=== PATIENT | male | born 1960 | race Caucasian/White ===

== ENCOUNTER 2016-08-18 20:08 | Emergency (ER) | payer MEDICARE, MEDICAID ==
[2016-08-18 22:04] LABS: ABSOLUTE EOSINOPHILS # (AUTO) 0.1 10^3/uL (0.0-0.6); ABSOLUTE LYMPHOCYTES (AUTO) 0.9 10^3/uL (0.5-4.7); ABSOLUTE MONOCYTES (AUTO) 0.6 10^3/uL (0.1-1.4); ABSOLUTE NEUT (AUTO) 10.7 10^3/uL (1.7-8.2); BASOPHILS % (AUTO) 0.3 % (0-2); EOSINOPHILS % (AUTO) 0.5 % (0-6); HEMATOCRIT 39.7 % (37.9-51.0); HEMOGLOBIN 13.4 g/dL (13.5-17.0); HGB HCT DIFFERENCE 0.5; LYMPHOCYTES % (AUTO) 7.5 % (13-45); MEAN CORPUSCULAR HEMOGLOBIN 29.9 pg (27.0-33.4); MEAN CORPUSCULAR HGB CONC 33.8 g/dL (32.0-36.0); MEAN CORPUSCULAR VOLUME 89 fl (80-97); RED BLOOD COUNT 4.49 10^6/uL (4.35-5.55); RED CELL DISTRIBUTION WIDTH 13.3 % (11.5-14.0); SEGMENTED NEUTROPHILS % (AUTO) 86.7 % (42-78); WHITE BLOOD COUNT 12.3 10^3/uL (4.0-10.5)
[2016-08-18 22:14] LABS: ALANINE AMINOTRANSFERASE 24 U/L (21-72); ALBUMIN 4.6 g/dL (3.5-5.0); ALKALINE PHOSPHATASE 65 U/L (38-126); ANION GAP 11 (5-19); ASPARTATE AMINO TRANSFERASE 16 U/L (17-59); BILIRUBIN,TOTAL 0.6 mg/dL (0.2-1.3); BLOOD UREA NITROGEN 23 mg/dL (7-20); CALCIUM 9.7 mg/dL (8.4-10.2); CARBON DIOXIDE 30 mmol/L (22-30); CHLORIDE 101 mmol/L (98-107); CREATININE RESULT 0.86 mg/dL (0.52-1.25); GLUCOSE 138 mg/dL (75-110); POTASSIUM 4.1 mmol/L (3.6-5.0); SODIUM 142.2 mmol/L (137-145); TOTAL PROTEIN 7.3 g/dL (6.3-8.2)
--- NOTE | 2016-08-18 22:21 | ER Document Report ---
ED General - General Chief Complaint: Low Blood Sugar Stated Complaint: POSSIBLE BLOOD SUGAR PROBLEMS Notes: Patient is a 55 year old male presents with complaint of low blood sugar. Patient does have history of his blood sugar dropping in the past. He's had no recent changes in his Lantus or NovoLog. He says the reason why sugar dropped this time is because he took his insulin and did not eat afterwards before going to sleep. He denies any fevers. No recent infections. He says he feels well now. No further complaints at this time. He has eaten. Butter and crackers since arriving to ER. TRAVEL OUTSIDE OF THE [place] IN LAST 30 DAYS: No - Related Data Allergies/Adverse Reactions: Sulfa (Sulfonamide Antibiotics) Allergy (Unknown, Verified 05/11/16 20:00) Rash citalopram hydrobromide [From Celexa] Allergy (Verified 05/11/16 20:00) Past Medical History - Social History Smoking Status: Unknown if Ever Smoked Frequency of alcohol use: None Drug Abuse: None Family History: Reviewed & Not Pertinent - Past Medical History Cardiac Medical History: Reports: Hx Coronary Artery Disease, Hx Heart Attack - H&P from [address] [place], Hx Hypertension Pulmonary Medical History: Reports: Hx Pneumonia - with sepsis 2010 Denies: Hx Tuberculosis Neurological Medical History: Denies: Hx Seizures Endocrine Medical History: Reports: Hx Diabetes Mellitus Type 1. Denies: Hx Graves' Disease, Hx Hyperthyroidism, Hx Hypothyroidism Psychiatric Medical History: Reports: Hx Depression Denies: Hx Bipolar Disorder, Hx Post Traumatic Stress Disorder, Hx Schizophrenia Past Surgical History: Reports: Hx Orthopedic Surgery - Right BKA, left 5 toe amputation. Denies: Hx Pacemaker - Immunizations Hx Diphtheria, Pertussis, Tetanus Vaccination: Yes Hx Pneumococcal Vaccination: 07/11/10 Review of Systems - Review of Systems Notes: My Normal Review Basic REVIEW OF SYSTEMS: CONSTITUTIONAL : Denies fever, chills, or sweats. Denies recent illness. EENT: Denies eye, ear, throat, or mouth pain or symptoms. Denies nasal or sinus congestion. RESPIRATORY: Denies cough, cold, or chest congestion. Denies shortness of breath, difficulty breathing, or wheezing. GASTROINTESTINAL: Denies abdominal pain. Denies nausea, vomiting, or diarrhea. Denies constipation. Last BM: MUSCULOSKELETAL: Denies neck or back pain or joint pain or swelling. SKIN: Denies rash or skin lesions. NEUROLOGICAL: Denies altered mental status or loss of consciousness. Denies headache. Denies weakness or paralysis or loss of use of either side. Denies problems with gait or speech. Denies sensory or motor loss. ALL OTHER SYSTEMS REVIEWED AND NEGATIVE. Physical Exam - Vital signs Vitals: Temp Pulse Resp BP Pulse Ox 97.9 F 101 H 18 149/80 H 99 08/18/16 20:11 08/18/16 20:11 08/18/16 20:11 08/18/16 20:11 08/18/16 20:11 - Notes Notes: General Appearance: Well nourished, alert, cooperative, no acute distress, no obvious discomfort. Well-appearing. Vitals: reviewed, See vital signs table. Head: no swelling or tenderness to the head Eyes: PERRL, EOMI, Conjuctiva clear Mouth: No decreasd moisture Neck: Supple, no neck tenderness, No thyromegaly Lungs: No wheezing, No rales, No rhonci, No accessory muscle use, good air exchange bilaterally. Heart: Normal rate, Regular rythm, No murmur, no rub Abdomen: Normal BS, soft, No rigidity, No abdominal tenderness, No guarding, no rebound, no abdominal masses, no organomegaly Extremities: strength 5/5 in all extremities, good pulses in all extremities, no swelling or tenderness in the extremities, no edema. Skin: warm, dry, appropriate color, no rash Neuro: speech clear, oriented x 3, normal affect, responds appropriately to questions. Course - Vital Signs Vital signs: Temp Pulse Resp BP Pulse Ox 97.9 F 101 H 18 149/80 H 99 08/18/16 20:11 08/18/16 20:11 08/18/16 20:11 08/18/16 20:11 08/18/16 20:11 - Laboratory Result Diagrams: 08/18/16 20:20 08/18/16 20:20 Laboratory results interpreted by me: 08/18/16 08/18/16 08/18/16 20:16 20:20 20:20 WBC 12.3 H Hgb 13.4 L Seg Neutrophils % 86.7 H Lymphocytes % 7.5 L Absolute Neutrophils 10.7 H BUN 23 H Glucose 138 H POC Glucose 141 H AST 16 L 08/18/16 22:36 WBC Hgb Seg Neutrophils % Lymphocytes % Absolute Neutrophils BUN Glucose POC Glucose 216 H AST - Transfer of Care Notes: 08/19/16 01:05 Patient has not had any further drops in blood sugar. He looks very well. Fairly safe to be discharged home. I encouraged him to return to ER immediately if he has recurrent low blood sugar. I suspect his low blood sugar is related to the fact that he did not eat tonight after taking his insulin. Encourage return to ER if has recurrent high blood sugars despite treating himself with insulin. Patient agrees with plan will be discharged home. Dictation of this chart was performed using voice recognition software; therefore, there may be some unintended grammatical errors. Discharge - Discharge Clinical Impression: Hypoglycemia Condition: Good Disposition: HOME, SELF-CARE Additional Instructions: Please keep a close eye and her blood sugars over next 24 hours. Please return to ER immediately if you start having sugars over 300 that are not responding to insulin. Please make sure you eat after taking your insulin and before going to bed at night. Please return to ER immediately if you have any further concerns. Forms: Return to Work Referrals: NISHA WISEMAN [Primary Care Provider] - Follow up as needed
[2016-08-19 01:15] VITALS: BP 128/69
== END 2016-08-19 01:16 | disposition home or self-care (01) ==
LOC: ER 20:08
DX: E10.649 Type 1 diabetes mellitus with hypoglycemia without coma (principal); I25.10 Atherosclerotic heart disease of native coronary artery without angina pectoris; I25.2 Old myocardial infarction; I10 Essential (primary) hypertension; Z88.2 Allergy status to sulfonamides; Z88.8 Allergy status to other drugs, medicaments and biological substances
CPT/HCPCS: 36415; 80053; 82962; 85025; 99285

== ENCOUNTER 2017-03-17 12:50 | Emergency (ER) | payer MEDICARE, MEDICAID ==
[2017-03-17] MEDS ORDERED: ONDANSETRON HCL INJ/PF 4 MG/2 ML SDV IV ONE (13:06)
--- NOTE | 2017-03-17 13:15 | ER Document Report ---
ED General - General Mode of Arrival: Medic Information source: Patient, Emergency Med Personnel Cannot obtain history due to: Altered mental status TRAVEL OUTSIDE OF THE [place] IN LAST 30 DAYS: No - HPI Associated symptoms: Other - see above <JUAN PABLO KENNEY - Last Filed: 03/17/17 15:25> <SEVERO BYERS - Last Filed: 03/17/17 16:16> - General Stated Complaint: ALTERED MENTAL STATUS Time Seen by Provider: 03/17/17 13:03 Notes: Patient is a 56 year old male who presents to the ED via EMS after they were called with reports of the patient being unresponsive. EMS arrived to the patient and was found to have a critical high blood sugar level. Patient is somnulent but arouses to voice. He is able to answer questions but with some limitations. Patient has dark blood like material across both cheeks. He is slow to respond but denies SOB, abdominal pain or chest pain. Patient was placed on antibiotics 5 (JUAN PABLO KENNEY) - Related Data Allergies/Adverse Reactions: Sulfa (Sulfonamide Antibiotics) Allergy (Unknown, Verified 05/11/16 20:00) Rash citalopram hydrobromide [From Celexa] Allergy (Verified 05/11/16 20:00) Past Medical History - General Information source: Patient, Emergency Med Personnel - Social History Smoking Status: Unknown if Ever Smoked Family History: Reviewed & Not Pertinent - Past Medical History Cardiac Medical History: Reports: Hx Coronary Artery Disease, Hx Heart Attack - H&P from [address] [place], Hx Hypertension Pulmonary Medical History: Reports: Hx Pneumonia - with sepsis 2010 Endocrine Medical History: Reports: Hx Diabetes Mellitus Type 1 Psychiatric Medical History: Reports: Hx Depression Past Surgical History: Reports: Hx Orthopedic Surgery - Right BKA, left 5 toe amputation - Immunizations Hx Diphtheria, Pertussis, Tetanus Vaccination: Yes Hx Pneumococcal Vaccination: 07/11/10 <JUAN PABLO KENNEY - Last Filed: 03/17/17 15:25> Review of Systems - Review of Systems -: Yes ROS unobtainable due to patient's medical condition - AMS <JUAN PABLO KENNEY - Last Filed: 03/17/17 15:25> Physical Exam - General General appearance: Other - Somnulent but arouses to voice, answers questions but with some limitations - HEENT Head: Other - dark blood like material across both cheeks - Respiratory Respiratory status: No respiratory distress Breath sounds: Normal - Cardiovascular Rhythm: Regular, Tachycardia - 105 Heart sounds: Normal auscultation Murmur: No - Abdominal Inspection: Normal Distension: No distension Tenderness: Nontender - Extremities General upper extremity: Normal inspection, Normal ROM General lower extremity: Other - right BKA - Neurological Cognition: Other - AMS Sensory: Normal - Psychological Associated symptoms: Other - somnulant, able to give simple answer with some question of reliability, able to give - Skin Skin Temperature: Warm Skin Moisture: Dry Skin Color: Normal <JUAN PABLO KENNEY - Last Filed: 03/17/17 15:25> <SEVERO BYERS - Last Filed: 03/17/17 16:16> - Vital signs Vitals: Pulse Ox 100 03/17/17 13:02 - Neurological Notes: no focal neurological deficits except for AMS, normal sensation, spontaneous movement in extremities (JUAN PABLO KENNEY) Course - Laboratory Result Diagrams: 03/17/17 12:59 03/17/17 12:59 - Consults Dr. Dexter Time consulted: 14:43 Dr. Ybarra Time consulted: 15:14 [facility] transfer line Time consulted: 15:25 <JUAN PABLO KENNEY - Last Filed: 03/17/17 15:25> - Laboratory Result Diagrams: 03/17/17 12:59 03/17/17 12:59 <SEVERO BYERS - Last Filed: 03/17/17 16:16> - Re-evaluation Re-evalutation: 03/17/17 15:23 While in the ED, the patient has had a bowel movement without dark stool or blood present. (JUAN PABLO KENNEY) 03/17/17 15:[address] Sims at [facility] at 1550. Transfer pending bed availability in the PCU. I am told that the patient is the first on the list and this should happen fairly soon. (SEVERO BYERS) - Vital Signs Vital signs: Temp Pulse Resp BP Pulse Ox 24 H 108/37 L 99 03/17/17 14:01 03/17/17 14:00 03/17/17 14:01 - Laboratory Laboratory results interpreted by me: 03/17/17 03/17/17 03/17/17 12:59 12:59 14:37 WBC 23.7 H MCV 100 H MCHC 30.6 L Seg Neuts % (Manual) 87 H Lymphocytes % (Manual) 4 L Abs Neuts (Manual) 21.6 H Carbonic Acid 0.70 L ABG pH 7.06 L* ABG pCO2 23.1 L ABG pO2 131.2 H ABG HCO3 6.4 L ABG Total CO2 7.1 L Potassium 6.2 H* Chloride 93 L Carbon Dioxide 5 L* Anion Gap 42 H BUN 41 H Creatinine 1.80 H Est GFR ( Amer) 47 L Est GFR (Non-Af Amer) 39 L Glucose 922 H* Direct Bilirubin 0.6 H AST 16 L - Consults Dr. Dexter Reason for consultation: 03/17/17 14:43 Discussed patient. He advised us to speak with surgery landscape contractor to see if they are comfortable treating the patient if the patient has resumed bleeding. (JUAN PABLO KENNEY) Dr. Ybarra Reason for consultation: 03/17/17 15:14 Discussed patient. He does not do Endoscopy so we will transfer the patient. ( JUAN PABLO KENNEY) [facility] transfer line Reason for consultation: 03/17/17 15:25 Discussed patient. They will call back. (JUAN PABLO KENNEY) Discharge <JUAN PABLO KENNEY - Last Filed: 03/17/17 15:25> <SEVERO BYERS - Last Filed: 03/17/17 16:16> - Discharge Clinical Impression: DKA (diabetic ketoacidoses), DKA, type 1, Upper GI bleeding Condition: Serious Disposition: [facility] Referrals: NISHA WISEMAN MD [Primary Care Provider] - Follow up as needed Scribe Documentation - Scribe Written by Aidaibe:: jocelyn Hinton, 03/17/2017, [id number] acting as scribe for :: Alexandre <JUAN PABLO KENNEY - Last Filed: 03/17/17 15:25>
[2017-03-17 13:33] LABS: HEMATOCRIT 44.3 % (37.9-51.0); HEMOGLOBIN 13.6 g/dL (13.5-17.0); HGB HCT DIFFERENCE -3.5; MEAN CORPUSCULAR HEMOGLOBIN 30.5 pg (27.0-33.4); MEAN CORPUSCULAR HGB CONC 30.6 g/dL (32.0-36.0); MEAN CORPUSCULAR VOLUME 100 fl (80-97); RED BLOOD COUNT 4.44 10^6/uL (4.35-5.55); WHITE BLOOD COUNT 23.7 10^3/uL (4.0-10.5)
[2017-03-17 13:36] LABS: PROTHROMBIN TIME 13.4 SEC (11.4-15.4)
[2017-03-17 13:37] LABS: PARTIAL THROMBOPLASTIN TIME 26.4 SEC (23.5-35.8)
[2017-03-17 13:53] LABS: BAND NEUTROPHILS % (MANUAL) 4 % (3-5); BASOPHILS % (MANUAL) 0 % (0-2); EOSINOPHILS % (MANUAL) 0 % (0-6); LYMPHOCYTES % (MANUAL) 4 % (13-45); TOTAL CELLS COUNTED 100
[2017-03-17 13:54] LABS: ANISOCYTOSIS SLIGHT; TOXIC GRANULATION SLIGHT
[2017-03-17 13:55] LABS: BURR CELLS SLIGHT; PLATELET CLUMPS PRESENT; POIKILOCYTOSIS SLIGHT
[2017-03-17 14:00] LABS: ALANINE AMINOTRANSFERASE 21 U/L (21-72); ALBUMIN 4.9 g/dL (3.5-5.0); ALKALINE PHOSPHATASE 76 U/L (38-126); ASPARTATE AMINO TRANSFERASE 16 U/L (17-59); BILIRUBIN,DIRECT 0.6 mg/dL (0.0-0.4); BILIRUBIN,TOTAL 0.6 mg/dL (0.2-1.3); BLOOD UREA NITROGEN 41 mg/dL (7-20); TOTAL PROTEIN 7.2 g/dL (6.3-8.2)
--- NOTE | 2017-03-17 14:11 | RADIOLOGY REPORT (SQ) ---
EXAM DESCRIPTION: CHEST SINGLE VIEW COMPLETED DATE/TIME: 03/17/2017 1:50 pm REASON FOR STUDY: decreased responsiveness COMPARISON: 10/28/2015 EXAM PARAMETERS: NUMBER OF VIEWS: One view. TECHNIQUE: Single frontal radiographic view of the chest acquired. RADIATION DOSE: NA LIMITATIONS: None. FINDINGS: LUNGS AND PLEURA: No opacities, masses or pneumothorax. No pleural effusion. MEDIASTINUM AND HILAR STRUCTURES: No masses. Contour normal. HEART AND VASCULAR STRUCTURES: Heart normal in size. Normal vasculature. BONES: No acute findings. HARDWARE: None in the chest. OTHER: No other significant finding. IMPRESSION: NO ACUTE RADIOGRAPHIC FINDING IN THE CHEST. TECHNICAL DOCUMENTATION: JOB ID: [id number]
[2017-03-17 14:13] LABS: CHLORIDE 93 mmol/L (98-107); SODIUM 139.9 mmol/L (137-145)
[2017-03-17 14:18] LABS: ANION GAP 42 (5-19)
[2017-03-17 14:20] LABS: GLUCOSE 922 mg/dL (75-110); POTASSIUM 6.2 mmol/L (3.6-5.0)
[2017-03-17 14:21] LABS: CARBON DIOXIDE 5 mmol/L (22-30)
[2017-03-17] MEDS ORDERED: INSULIN REG, HUMAN 100 UNIT/ML 3 ML VIAL (PYX) IV ONE (14:24)
[2017-03-17] MEDS: NORMAL SALINE 1000 ML 1,000 ML IV PRN ×2 (14:59→17:16)
[2017-03-17 15:02] LABS: ARTERIAL BLOOD BASE EXCESS -22.4 mmol/L; ARTERIAL BLOOD O2 SATURATION 97.3 % (94-98)
[2017-03-17 17:28] LABS: APPEARANCE,URINE CLEAR; BILIRUBIN,URINE NEGATIVE (NEGATIVE); GLUCOSE, URINE >=500 mg/dL (NEGATIVE); KETONES,URINE 80 mg/dL (NEGATIVE); LEUKOCYTE ESTERASE,URINE NEGATIVE (NEGATIVE); NITRITE,URINE NEGATIVE (NEGATIVE); PROTEIN,URINE 30 mg/dL (NEGATIVE); URINE SPECIFIC GRAVITY 1.016; UROBILINOGEN,URINE NEGATIVE mg/dL (<2.0)
[2017-03-17 19:37] LABS: BLOOD UREA NITROGEN 43 mg/dL (7-20); CALCIUM 9.1 mg/dL (8.4-10.2); CHLORIDE 106 mmol/L (98-107); CREATININE RESULT 1.69 mg/dL (0.52-1.25); SODIUM 145.6 mmol/L (137-145)
[2017-03-17 19:46] LABS: ANION GAP 32 (5-19)
[2017-03-17 19:58] LABS: CARBON DIOXIDE 8 mmol/L (22-30); GLUCOSE 636 mg/dL (75-110)
[2017-03-17] MEDS ORDERED: CEFTRIAXONE 1 GM/D5W RTU 1 GM/50 ML RTUPB IV ONE (20:19)
[2017-03-17] MEDS ORDERED: NORMAL SALINE 1000 ML 1,000 ML IV ONE (20:21)
--- NOTE | 2017-03-17 22:43 | ER Document Report ---
Doctor's Note Notes: 03/17/17 22:41 Transport is here to take this patient to [facility]. Patient has been stable throughout the evening. Vital signs are all normal. He has slept most of the time. All his labs still reveal significant abnormalities, patient's electrolytes and bicarb have improved. His blood sugar has declined from the 900s to the 600s. He is coughed a few times, but has not vomited any more blood this evening. Patient appears to be stable for transfer at this time. Sammy Santos MD
[2017-03-17 22:52] VITALS: BP 119/60
--- NOTE | 2017-03-18 08:00 | EKG REPORT ---
SEVERITY:- OTHERWISE NORMAL ECG - SINUS TACHYCARDIA RIGHT AXIS DEVIATION : Confirmed by: Scot Duckworth MD 18-Mar-2017 08:00:00
== END 2017-03-17 22:52 | disposition short-term general hospital (02) ==
LOC: ER 12:50
DX: E10.10 Type 1 diabetes mellitus with ketoacidosis without coma (principal); E10.65 Type 1 diabetes mellitus with hyperglycemia; K92.2 Gastrointestinal hemorrhage, unspecified; R41.82 Altered mental status, unspecified
CPT/HCPCS: 93005; 99285; 96361; 96375; 96365; 86900; 86901; 36415; 87040; 86850; 82962; 80307; 82803; 83690; 85025; 85610; 85730; 80048; 80053; 81001; 71010; 93010; A9270; J2405; J7030; J0696; J1815

== ENCOUNTER 2018-08-30 07:31 | Emergency (ER) | payer MEDICARE, MEDICAID ==
[2018-08-30] MEDS ORDERED: ONDANSETRON HCL INJ/PF 4 MG/2 ML SDV IV ONE (09:01)
[2018-08-30] MEDS ORDERED: NORMAL SALINE 1000 ML 1,000 ML IV ONE (09:01)
[2018-08-30 09:15] LABS: APPEARANCE,URINE SLIGHTLY-CLOUDY; BILIRUBIN,URINE NEGATIVE (NEGATIVE); COLOR,URINE YELLOW; GLUCOSE, URINE >=500 mg/dL (NEGATIVE); KETONES,URINE 20 mg/dL (NEGATIVE); LEUKOCYTE ESTERASE,URINE NEGATIVE (NEGATIVE); NITRITE,URINE NEGATIVE (NEGATIVE); PROTEIN,URINE 100 mg/dL (NEGATIVE); UROBILINOGEN,URINE NEGATIVE mg/dL (<2.0)
[2018-08-30 09:20] LABS: HEMATOCRIT 37.2 % (37.9-51.0); MEAN CORPUSCULAR HEMOGLOBIN 31.3 pg (27.0-33.4); MEAN CORPUSCULAR HGB CONC 34.9 g/dL (32.0-36.0); MEAN CORPUSCULAR VOLUME 90 fl (80-97); PLATELET COUNT 207 10^3/uL (150-450); RED BLOOD COUNT 4.14 10^6/uL (4.35-5.55); WHITE BLOOD COUNT 10.4 10^3/uL (4.0-10.5)
[2018-08-30 09:25] LABS: ALANINE AMINOTRANSFERASE 29 U/L (21-72); ALBUMIN 4.1 g/dL (3.5-5.0); ALKALINE PHOSPHATASE 75 U/L (38-126); ANION GAP 19 (5-19); ASPARTATE AMINO TRANSFERASE 34 U/L (17-59); BILIRUBIN,DIRECT 0.4 mg/dL (0.0-0.4); BILIRUBIN,TOTAL 0.8 mg/dL (0.2-1.3); BLOOD UREA NITROGEN 41 mg/dL (7-20); CALCIUM 8.9 mg/dL (8.4-10.2); CARBON DIOXIDE 21 mmol/L (22-30); CHLORIDE 92 mmol/L (98-107); GLUCOSE 366 mg/dL (75-110); LIPASE 58.7 U/L (23-300); POTASSIUM 4.6 mmol/L (3.6-5.0); SODIUM 132.1 mmol/L (137-145); TOTAL PROTEIN 6.6 g/dL (6.3-8.2)
[2018-08-30 09:56] LABS: ABSOLUTE LYMPHOCYTES# (MANUAL) 0.3 10^3/uL (0.5-4.7); ABSOLUTE MONOCYTES # (MANUAL) 0.1 10^3/uL (0.1-1.4); BAND NEUTROPHILS % (MANUAL) 4 % (3-5); BASOPHILS % (MANUAL) 0 % (0-2); EOSINOPHILS % (MANUAL) 0 % (0-6); LYMPHOCYTES % (MANUAL) 3 % (13-45); MONOCYTES % (MANUAL) 1 % (3-13); PLATELET COMMENT ADEQUATE; POLYCHROMASIA SLIGHT; SEGMENTED NEUTROPHILS % (MAN) 92 % (42-78); TOTAL CELLS COUNTED 100; TOXIC GRANULATION 1+
--- NOTE | 2018-08-30 11:05 | ER Document Report ---
ED General - General Chief Complaint: Nausea Stated Complaint: NAUSEA Time Seen by Provider: 08/30/18 09:01 Primary Care Provider: NISHA WISEMAN MD [Primary Care Provider] - Follow up as needed Notes: Well-appearing 57-year-old male with insulin-dependent diabetes mellitus presents to the emergency department for nausea times 4 days. Patient states he woke up Tuesday morning nauseated with no associated vomiting. Occasional dry heaves. No fevers or chills. No abdominal pain. No bloating. No chest pain o r shortness of breath. Reduced appetite. TRAVEL OUTSIDE OF THE [place] IN LAST 30 DAYS: No - Related Data Allergies/Adverse Reactions: Sulfa (Sulfonamide Antibiotics) Allergy (Unknown, Verified 08/30/18 07:31) Rash citalopram hydrobromide [From Celexa] Allergy (Verified 08/30/18 07:31) Past Medical History - Social History Smoking Status: Unknown if Ever Smoked Family History: Reviewed & Not Pertinent Patient has suicidal ideation: No Patient has homicidal ideation: No - Past Medical History Cardiac Medical History: Reports: Hx Coronary Artery Disease, Hx Heart Attack - H&P [place] [address] [place], Hx Hypertension Pulmonary Medical History: Reports: Hx Pneumonia - with sepsis 2010 Endocrine Medical History: Reports: Hx Diabetes Mellitus Type 1 Renal/ Medical History: Denies: Hx Peritoneal Dialysis Psychiatric Medical History: Reports: Hx Depression Past Surgical History: Reports: Hx Orthopedic Surgery - Right BKA, left 5 toe amputation - Immunizations Hx Diphtheria, Pertussis, Tetanus Vaccination: Yes Hx Pneumococcal Vaccination: 07/11/10 Physical Exam - Vital signs Vitals: Temp Pulse Resp BP Pulse Ox 100.0 F 106 H 16 105/52 L 96 08/30/18 07:35 08/30/18 07:35 08/30/18 07:35 08/30/18 07:35 08/30/18 07:35 - Notes Notes: PHYSICAL EXAMINATION: Reviewed vital signs and charting by RN GENERAL: Alert, interacts well. No acute distress. HEAD: Normocephalic, atraumatic. EYES: Pupils equal, round. Extraocular movements intact. ENT: Oral mucosa moist, tongue midline. NECK: Full range of motion. Trachea midline. ABDOMEN: soft, non-tender. Non-distended. Bowel sounds present in all 4 quadrants. no McBurney's point tenderness, no Zapien sign. EXTREMITIES: Left BKA due to diabetic foot wound moves all 4 extremities spontaneously. No edema, No cyanosis. NEUROLOGICAL: Alert. Normal speech. PSYCH: Normal affect, normal mood. SKIN: Warm, dry, normal turgor. No rashes or lesions noted. Course - Re-evaluation Re-evalutation: 08/30/18 11:06 Presentation of hyperglycemia. Briefly discussed case with Dr. Hall. Blood glucose 336. Not currently in DKA. There is no evidence of HHS or diabetic ketoacidosis on laboratories or based on clinical history. Patient's vitals are within normal limits. They deny any acute focal complaints. No emergent condition that would require insulin therapy or infusion. Patient does have primary care follow-up and access to endocrinology. Indications to return to emergency department as well as the importance of close outpatient follow-up were discussed at length. Patient verbalized understanding of the need for close follow-up and indications to return to the ED. - Vital Signs Vital signs: Temp Pulse Resp BP Pulse Ox 100.0 F 106 H 16 105/52 L 96 08/30/18 07:35 08/30/18 07:35 08/30/18 07:35 08/30/18 07:35 08/30/18 07:35 - Laboratory Result Diagrams: 08/30/18 08:25 08/30/18 08:25 Laboratory results interpreted by me: 08/30/18 08/30/18 08/30/18 08:25 08:25 08:25 RBC 4.14 L Hgb 13.0 L Hct 37.2 L Seg Neuts % (Manual) 92 H Lymphocytes % (Manual) 3 L Monocytes % (Manual) 1 L Abs Neuts (Manual) 10.0 H Abs Lymphs (Manual) 0.3 L Sodium 132.1 L Chloride 92 L Carbon Dioxide 21 L BUN 41 H Est GFR (Non-Af Amer) 59 L Glucose 366 H Urine Protein 100 H Urine Glucose (UA) >=500 H Urine Ketones 20 H Urine Blood MODERATE H Discharge - Discharge Clinical Impression: Nausea Hyperglycemia due to type 2 diabetes mellitus Qualifiers: Diabetes mellitus buttermaker continuous churn insulin use: with buttermaker continuous churn use Qualified Code(s): E11.65 - Type 2 diabetes mellitus with hyperglycemia Condition: Good Disposition: HOME, SELF-CARE Additional Instructions: You need to followup urgently with your primary care doctor and your wind operations manager as your blood sugars were dangerously high today. You did not have any evidence of a dangerous condition associated with these blood sugars at this time. However, it is very important that you get your blood sugars under control. Please take all of your medications exactly as directed. You should avoid foods that are high in carbohydrates and sugary foods. Losing weight will also help to better control your blood sugars. Please return to emergency department immediately if you develop weakness, persistent vomiting, confusion, or any other symptoms that are concerning to you. Referrals: NISHA WISEMAN MD [Primary Care Provider] - Follow up as needed
[2018-08-30 11:31] VITALS: BP 112/52
== END 2018-08-30 11:31 | disposition home or self-care (01) ==
LOC: ER 07:31
DX: R11.0 Nausea (principal); E11.65 Type 2 diabetes mellitus with hyperglycemia; R63.0 Anorexia; I25.10 Atherosclerotic heart disease of native coronary artery without angina pectoris; I10 Essential (primary) hypertension; Z88.2 Allergy status to sulfonamides; Z88.8 Allergy status to other drugs, medicaments and biological substances
CPT/HCPCS: 99284; 96361; 96374; 36415; 83690; 85025; 80053; 81001; J2405; J7030

== ENCOUNTER 2020-06-19 09:55 | Day surgery (SDC) | payer MEDICARE, MEDICAID ==
[~2020-06-19 09:55] MED LIST: CHONDR SU A NA/HYALUR INTRAOC KIT (SURGICARE) ONE; EPINEPHRINE INJ/PF 1 MG/1 ML AMPULE ONE; KETOROLAC TROMETHAMINE 0.45% 4 DROP/0.4 ML DROPERETTE OD PRN; LIDOCAINE 1%/PHENYLEPHRINE 1.5% 1 ML VIAL ONE; TRYPAN BLUE 0.06 % OPH SOLN 0.5 ML DISP.SYRIN ONE
[2020-06-19] MEDS ORDERED: MIDAZOLAM 2 MG/2 ML INJ ONE (09:59)
[2020-06-19] MEDS ORDERED: FENTANYL CITRATE INJ/PF 100 MCG/2 ML AMPUL ONE (09:59)
[2020-06-19] MEDS ORDERED: ONDANSETRON HCL INJ/PF 4 MG/2 ML SDV ONE (09:59)
[2020-06-19] MEDS: CYCLOPENTOLATE 0.2%/PHENYLEPHRINE 1% OPH SOLN 2 ML OD PRN ×3 (10:30→10:50)
[2020-06-19] MEDS: BESIFLOXACIN HCL 0.6% OPH SUSP 5 ML BOTTLE OD PRN ×4 (10:30→11:28)
[2020-06-19] MEDS: TROPICAMIDE 1% OPH SOLN 15 ML OD PRN ×3 (10:30→10:50)
[2020-06-19] MEDS: TETRACAINE HCL 0.5% OPH SOLN 4 ML OD PRN ×3 (10:31→11:07)
[2020-06-19] MEDS ORDERED: TOBRAMYCIN SULFATE/DEXAMETH OPH OINTMENT 3.5 GM ONE (11:18)
[2020-06-19] MEDS: PREDNISOLONE ACETATE 1% OPH SUSP 5 ML OD PRN ×2 (11:28)
[2020-06-19] MEDS: DORZOLAMIDE HCL 2%/TIMOLOL MALEAT 0.5% OPH SOLN 10 ML OD PRN ×2 (11:28)
--- NOTE | 2020-06-19 11:59 | Operative Report ---
Operative Report-[facility] Operative Report: DATE OF SURGERY: 06/19/2020 PREOPERATIVE DIAGNOSIS: Cataract, right eye POSTOPERATIVE DIAGNOSIS: Cataract, right eye OPERATION: Cataract extraction with insertion of an IOL of the right eye. Intraocular Lens Model: [23.5 SN 60 WF] Patient underwent surgery for difficulty seeing road signs SURGEON: Wesley Krishnamurthy MD ANESTHESIA: Topical PROCEDURE: After obtaining appropriate consent, the patient's right eye was prepped and draped in a sterile fashion as well as the surgeon in the sterile manner and cataract surgery was started. First a paracentesis blade was used to make a side-port incision. Viscoelastic was used to inflate the anterior chamber. Next a 2.4 mm incision was made with a 2.4 mm blade, clear corneal temporarily. A continuous capsulorrhexis was made using a cystotome and Utrata forceps. Following this hydrodissection was carried out to make the rachel fully loose and mobile and it was rotated. Following this, a divide and conquer technique was used to phacoemulsify the rachel. The remaining cortex was removed with an irrigation/aspiration. Provisc was instilled into the capsular bag to inflate the bag. The intraocular lens was placed. The remaining viscoelastic material was removed with irrigation/aspiration. Following this, the incision was found to be watertight. Besivance and Cosopt was instilled into the eye and a protective shield was placed over the eye. The patient was reurned to the postoperative recovery in a stable condition.
== END 2020-06-19 12:01 | disposition home or self-care (01) ==
LOC: SC 09:55
PROVIDERS: ATTEND Internal Medicine
DX: H25.11 Age-related nuclear cataract, right eye (principal); E10.36 Type 1 diabetes mellitus with diabetic cataract; Z79.4 Long term (current) use of insulin; I95.9 Hypotension, unspecified; H57.03 Miosis; I78.1 Nevus, non-neoplastic; H17.89 Other corneal scars and opacities
CPT/HCPCS: 66984; 82962; V2632; J2250; J3490 ×2; A9270 ×2; J0171; J3010; J2405